=== PATIENT | female | born 1985 ===

== ENCOUNTER 2024-06-10 11:50 | Day surgery (SDC) | payer OTHER ==
[~2024-06-10 11:50] MED LIST: MEGESTROL ACETA40 MG PO
[2024-06-10] MEDS ORDERED: CEFAZOLIN SODIUM 1,000 MG VIAL ONE (16:55)
[2024-06-10] MEDS ORDERED: POVIDONE-IODINE 118 ML BOTT TOP ONE ×2 (16:55→17:50)
[2024-06-10] MEDS ORDERED: METHYLERGONOVINE MALEATE 0.2 MG/ML AMPUL ONE ×2 (18:15→20:59)
[2024-06-10] MEDS ORDERED: METHYLERGONOVINE MALEATE 0.2 MG/ML AMPUL IM ONE (22:00)
== END 2024-06-10 21:10 | disposition home or self-care (01) ==
LOC: CIR.AMB 11:50
PROVIDERS: ATTEND Obstetrics & Gynecology
DX: D25.0 Submucous leiomyoma of uterus (principal); N92.0 Excessive and frequent menstruation with regular cycle